=== PATIENT | female | born 1965 | race African-American/Black ===

== ENCOUNTER 2017-09-07 17:29 | Observation (INO) | payer OTHER, SELFPAY ==
[2017-09-07 18:01] LABS: #Basophils 0.1 thou/uL (0.0-0.2); #Lymphocytes 1.3 thou/uL (1.20-3.40); #Monocytes 0.5 thou/uL (0.11-0.59); #Neutrophils 9.5 thou/uL (1.40-6.50); %Basophils 0.5 % (0.0-1.0); %Eosinophils 0.2 % (0.0-10.0); %Lymphocytes 11.1 % (21.0-51.0); %Monocytes 4.2 % (0.0-10.0); Mean Corpuscular HGB CONC 33.7 g/dL (32.0-36.0); Mean Corpuscular Hemoglobin 31.5 pg (27.0-31.0); Mean Corpuscular Volume 93.2 fl (81.0-99.0); Mean Platelet Volume 8.7 fL (7.4-10.4); Platelet Count 280 thou/uL (130-400); RBC Distribution Width 11.3 % (11.5-14.5); Red Blood Cell (RBC) Count 3.82 mill/uL (4.20-5.40); White Blood Cell (WBC) Count 11.4 thou/uL (4.8-10.8)
[2017-09-07 18:23] LABS: ALT (SGPT) 19 U/L (8-55); AST (SGOT) 21 U/L (5-34); Albumin 4.1 g/dL (3.5-5.0); Alkaline Phosphatase 68 U/L (40-150); Anion Gap 12 mmol/L (10-20); BUN (Urea Nitrogen) 11 mg/dL (9.8-20.1); Bilirubin, Total 0.6 mg/dL (0.2-1.2); CK (CPK) 122 U/L (29-168); Calc. Creatinine Clearance 0 mL/min (70-130); Calcium 9.7 mg/dL (7.8-10.44); Carbon Dioxide 24 mmol/L (22-29); Chloride 103 mmol/L (98-107); Estimated GFR-MDRD Greater than 90; Globulin 3.3 g/dL (2.4-3.5); Glucose 160 mg/dL (70-105); Potassium 3.2 mmol/L (3.5-5.1); Protein, Total 7.4 g/dL (6.0-8.3); Sodium 136 mmol/L (136-145)
[2017-09-07 18:32] LABS: CKMB 0.9 ng/mL (0-6.6); Troponin I Less than 0.010 ng/mL (< 0.028)
--- NOTE | 2017-09-07 18:38 | CT ---
BRAIN CT WITHOUT IV CONTRAST: 09/07/17 HISTORY: 52-year-old female with headache following a fall. COMPARISON: 11/19/16. FINDINGS: No focal mass or midline shift. No intra or extra-axial hemorrhage. Sinuses and mastoids are clear. IMPRESSION: No acute intracranial process. No mass or bleed. Stable from prior study. POS: [facility]
[2017-09-07] MEDS ORDERED: traMADol HCl 50 MG TAB PO PRN (20:26)
[2017-09-07 23:10] LABS: Bilirubin Negative (Negative); Blood, Urine Negative (Negative); Clarity CLEAR (Clear); Glucose, Urine (Dipstick) Negative (Negative); Leukocyte Negative (Negative); Nitrite Negative (Negative); Protein, Urine (Dipstick) Trace mg/dL (Neg-Trace); Specific Gravity, Urine 1.014 (1.002-1.036)
[2017-09-07] MEDS: Potassium Chloride 40 MEQ in Sodium Chloride 0.9% 500 ML IVPB SCH (23:10)
[2017-09-07 23:19] LABS: Amphetamine Not Detected (NotDetected); Barbiturates Screen Not Detected (NotDetected); Benzodiazepine Screen Not Detected (NotDetected); Cocaine Metabolite Screen Not Detected (NotDetected); Medtox Control Line Valid? VALID (VALID); Medtox Reader # READER 1; Methadone Not Detected (NotDetected); Methamphetamine Not Detected (NotDetected); Opiate Screen Detected (NotDetected); Oxycodone Screen Not Detected (NotDetected); Phencyclidine (PCP) Not Detected (NotDetected); THC/Cannabinoid Screen Not Detected (NotDetected); Tricyclic Screen Not Detected (NotDetected)
[2017-09-07] MEDS ORDERED: Sodium Chloride 0.9% 1,000 ML IV SCH (23:45)
--- NOTE | 2017-09-07 23:54 | HP ---
CHIEF COMPLAINT: Headache and intractable nausea and vomiting. HISTORY OF PRESENT ILLNESS: This is a 52-year-old pleasant lady who was apparently in usual state of health says that she was under lot of stress in the last couple of days, had a headache when she got up and it was severe, so she took some sinus medications because she thought it was sinus problem an d after that she had intractable nausea and vomiting. The headache still persists as she called and she had some spasms of both the legs. She was concerned and then she called 911, 911 gave her 10 mg of morphine and 4 mg of Zofran, which helped her a little bit with headache. At the time of my exami cezar, she says that the headache was still coming back right now. Denies any fever, chills, diarrh ea, or dysuria, still feels nauseous. Patient's medical history is significant for hypertension, his tory of uterine fibroids. Of note, patient was admitted in 11/2016 with similar problems related to headache let to unresponsiveness and she was intubated briefly and later got better and was discharge d. PAST SURGICAL HISTORY: Significant for appendectomy, hysterectomy, left hand surgery. PSYCHIATRIC HISTORY: Significant for anxiety and depression. SOCIAL HISTORY: Does not smoke, drink, or do recreational drugs. FAMILY HISTORY: Negative for diabetes, hypertension. ALLERGIES: PROMETHAZINE. REVIEW OF SYSTEMS: Significant for nausea, vomiting, and headache, otherwise no fever, no chills, no eye pain, no hearing loss, no latencies. No cough, no chest pain, no diarrhea, dysuria, or polyuria . No memory or mood changes. No neck pain. PHYSICAL EXAMINATION: VITAL SIGNS: Blood pressure is 141/100, pulse is 67, respirations 18, temperature 97.7. GENERAL: Patient is lying in bed in mild distress, because of the headache. HEENT: Atraumatic, normocephalic. Pupils are equally round and react to light. Extraocular movemen ts intact. Mucous membranes moist. NECK: Supple. No JVD. CHEST: Breath sounds heard. No rales or rhonchi. HEART: S1, S2. No murmurs or gallops. ABDOMEN: Soft. EXTREMITIES: No cyanosis, clubbing, or edema. Distal pulses present. NEUROLOGIC: Alert, awake, oriented. No cranial deficits. No sensorimotor deficits. LABORATORY DATA: Patient's potassium is 3.2, creatinine is 0.6. EKG is normal sinus rhythm. Hemogl obin is 12, WBC count is 1.4 ejection fraction of 60%. CT head is negative. Troponin is negative. ASSESSMENT AND PLAN: 1. Headache, most probably stress-induced headache. We will give her Tylenol. Continue tramadol fo r home medication. In[place]ern as needed and given some trazodone to get some good sleep if the patient's headache persists, we will think of Neurology consult. 2. Intractable nausea, vomiting. We will give her p.r.n. medications and slowly start diet. 3. Muscle cramps secondary to hypokalemia. We will replace potassium. We will monitor blood pressu re and optimize blood pressure supplement, potassium as needed. 4. Sequential compression devices for deep venous thrombosis prophylaxis. I will follow the labs an d do the need for.
[2017-09-07] MEDS ORDERED: Acetaminophen 325 MG TAB PO PRN (23:58)
[2017-09-07] MEDS ORDERED: traZODone HCl 50 MG TAB PO PRN (23:58)
[2017-09-07] MEDS ORDERED: Calcium Carbonate 500 MG ChewTAB PO PRN (23:58)
[2017-09-07] MEDS ORDERED: Lorazepam 1 MG TAB PO PRN (23:58)
[2017-09-07] MEDS ORDERED: hydrALAZINE 20 MG/ML VIAL SLOW IVP PRN (23:58)
[2017-09-07] MEDS ORDERED: HYDROcodone/Acetaminophen 5/325 mg Tablet PO PRN (23:58)
[2017-09-07] MEDS ORDERED: Ondansetron HCl/PF 4 MG/2 ML Vial IVP PRN (23:58)
[2017-09-08 00:15] VITALS: BMI 25.9
[2017-09-08] MEDS ORDERED: Famotidine/PF 20 mg/2ml Vial SLOW IVP SCH (00:15)
[2017-09-08 00:21] LABS: Bacteria/HPF None Seen HPF (None Seen); Hyaline Casts/LPF 0-3 HYALINE CAST LPF (0-3 Hyaline); RBC/HPF 0-3 HPF (0-3); Squamous Epithelial 0-3 HPF (0-3); WBC/HPF 0-3 HPF (0-3)
[2017-09-08] MEDS: Potassium Chloride 40 MEQ in Sodium Chloride 0.9% 500 ML IVPB SCH (01:00)
[2017-09-08] MEDS: Metoprolol Tartrate 25 MG TAB PO SCH ×4 (01:03→20:02)
[2017-09-08] MEDS: Sodium Chloride 0.9% 1,000 ML IV SCH ×2 (01:44→17:39)
[2017-09-08] MEDS: Famotidine/PF 20 mg/2ml Vial SLOW IVP SCH ×3 (01:48→19:57)
[2017-09-08 06:05] LABS: #Lymphocytes 1.5 thou/uL (1.20-3.40); #Monocytes 0.9 thou/uL (0.11-0.59); #Neutrophils 7.8 thou/uL (1.40-6.50); %Basophils 0.3 % (0.0-1.0); %Eosinophils 0.3 % (0.0-10.0); %Lymphocytes 14.3 % (21.0-51.0); %Monocytes 8.8 % (0.0-10.0); %Neutrophils 76.3 % (42.0-75.0); Mean Corpuscular HGB CONC 33.2 g/dL (32.0-36.0); Mean Corpuscular Hemoglobin 31.1 pg (27.0-31.0); Mean Corpuscular Volume 93.7 fl (81.0-99.0); Platelet Count 256 thou/uL (130-400); RBC Distribution Width 11.4 % (11.5-14.5); Red Blood Cell (RBC) Count 3.86 mill/uL (4.20-5.40); White Blood Cell (WBC) Count 10.2 thou/uL (4.8-10.8)
[2017-09-08 06:28] LABS: Anion Gap 11 mmol/L (10-20); BUN (Urea Nitrogen) 10 mg/dL (9.8-20.1); Calc. Creatinine Clearance 92 mL/min (70-130); Calcium 9.7 mg/dL (7.8-10.44); Carbon Dioxide 27 mmol/L (22-29); Chloride 104 mmol/L (98-107); Estimated GFR-MDRD Greater than 90; Glucose 84 mg/dL (70-105); Potassium 3.7 mmol/L (3.5-5.1); Sodium 138 mmol/L (136-145)
[2017-09-08] MEDS: Lisinopril/Hydrochlorothiazide 20/25 mg Tablet PO SCH (08:14)
[2017-09-08] MEDS ORDERED: Magnesium Oxide 250 MG TAB PO SCH ×2 (10:30→12:45)
[2017-09-08] MEDS ORDERED: Ketorolac Tromethamine 30 MG/ML VIAL IVP SCH (10:30)
--- NOTE | 2017-09-08 13:01 | CON ---
DATE OF CONSULTATION: 09/08/2017 CONSULTING PHYSICIAN: Hospitalist Service IMPRESSION: 1. Migraine. 2. Muscle cramps. PLAN: 1. Toradol 30 mg IV now. 2. Magnesium 500 mg p.o. now. 3. Patient can be discharged home. HISTORY OF PRESENT ILLNESS: Ms. Smith is a 52-year-old black female with a long history of migraines . They do not occur all that often, but can be quite severe. She reports developing a severe headac he associated with nausea and vomiting. She has been having some cramps in her calf muscles also, remy perez came to the ER for help with her headache, the pain is down to 3/10 at this point. Her workup has been unremarkable. I was called to give her a neurologic opinion. PAST MEDICAL HISTORY: Migraines. ALLERGIES: DIPHENHYDRAMINE and PHENERGAN. SOCIAL HISTORY: Unremarkable. FAMILY HISTORY: Noncontributory. REVIEW OF SYSTEMS: No lateralized weakness or numbness. PHYSICAL EXAMINATION: GENERAL: She is a healthy appearing middle-aged woman in no distress. HEENT: Pupils equal and reactive. Conjunctivae clear. Oropharynx clear. NECK: Supple. EXTREMITIES: No cyanosis, clubbing or edema. Calf muscle cramping was elicited with muscle strength testing. NEUROLOGIC: She is alert and appropriate. Her speech is fluent and clear. Cranial nerves were inta ct. Motor exam showed symmetric strength. Sensation was intact to light touch. [id number] move ments and rapid alternating movements were equal. Studies were reviewed. SUMMARY: Middle-aged woman with history of migraines who presented with a severe headache and has be en having some off and on muscle cramping and I do not see any acute neurologic issues otherwise.
--- NOTE | 2017-09-08 13:21 | PDOC.PN ---
- Subjective Encounter Start Date: 09/08/17 Encounter Start Time: 08:40 Pt seen for consult re: headache. Reports headache 12/24, no chest pain or shortness of breath. - Objective MAR Reviewed: Yes Vital Signs & Weight: Vital Signs (12 hours) Temp Pulse Resp BP Pulse Ox 09/08/17 11:55 98.1 F 64 16 145/94 H 99 09/08/17 10:14 98.4 F 62 17 09/08/17 09:49 98.4 F 62 17 148/91 H 99 09/08/17 08:14 68 09/08/17 08:00 97.7 F 68 16 169/89 H 98 09/08/17 04:00 97.5 F L 60 18 139/81 95 Weight Weight 141 lb 8 oz I&O: 09/07/17 09/08/17 09/09/17 06:59 06:59 06:59 Intake Total 560 Balance 560 Result Diagrams: 09/08/17 05:17 09/08/17 05:17 Phys Exam - Physical Examination Constitutional: NAD HEENT: moist MMs Neck: supple Respiratory: clear to auscultation bilateral Cardiovascular: RRR Gastrointestinal: soft Neurological: non-focal, normal sensation, moves all 4 limbs Psychiatric: normal affect Dx/Plan (1) Headache Code(s): R51 - HEADACHE Status: Acute (2) HTN (hypertension) Code(s): I10 - ESSENTIAL (PRIMARY) HYPERTENSION Status: Chronic - Plan out of bed/ambulate * . Likely migraine, continue pain medications. Await neurology input. Monitor vital signs, titrate antihypertensives as needed. Review of Systems - Review of Systems Respiratory: negative: Cough, Dry, Shortness of Breath, Hemoptysis, SOB with Excertion, Pleuritic Pain, Sputum, Wheezing Cardiovascular: negative: chest pain, palpitations, orthopnea, paroxysmal nocturnal dyspnea, edema, light headedness - Medications/Allergies Allergies/Adverse Reactions: Allergies Allergy/AdvReac Type Severity Reaction Status Date / Time diphenhydramine Allergy Mild Anxiety Verified 11/19/16 23:20 [From Benadryl] promethazine [From Phenergan] Allergy Verified 11/19/16 16:38 Medications: Current Medications Acetaminophen (Tylenol) 650 mg PO Q4H PRN PRN Reason: Headache/Fever or Pain Hydrocodone Bitart/Acetaminophen (Paxton 5/325) 1 tab PO Q4H PRN PRN Reason: Moderate Pain (4-6) Calcium Carbonate (Tums) 1,000 mg PO Q4H PRN PRN Reason: Heartburn or Indigestion Famotidine (Pepcid) 20 mg SLOW IVP Q12HR [facility] Last Admin: 09/08/17 08:15 Dose: 20 mg Lisinopril/HCTZ (Prinizide 20-25) 1 tab PO DAILY [facility] Last Admin: 09/08/17 08:14 Dose: 1 tab Hydralazine HCl (Apresoline) 10 mg SLOW IVP Q4H PRN PRN Reason: Systolic BP > 180 Sodium Chloride (Normal Saline 0.9%) 1,000 mls @ 60 mls/hr IV .[id number] [facility] Stop: 09/08/17 21:59 Last Admin: 09/08/17 01:44 Dose: 1,000 mls Lorazepam (Ativan) 1 mg PO Q4H PRN PRN Reason: Anxiety/Agitation Magnesium Oxide (Magnesium Oxide) 500 mg PO NOW [facility] Stop: 09/08/17 14:45 Metoprolol Tartrate (Lopressor) 25 mg PO BID [facility] Last Admin: 09/08/17 08:14 Dose: 25 mg Ondansetron HCl (Zofran) 4 mg IVP Q6H PRN PRN Reason: Nausea/Vomiting Last Admin: 09/08/17 08:18 Dose: 4 mg Tramadol HCl (Ultram) 50 mg PO Q4H PRN PRN Reason: Pain Last Admin: 09/08/17 10:07 Dose: 50 mg Trazodone HCl (Desyrel) 50 mg PO HSPRN PRN PRN Reason: Insomnia
[2017-09-09] MEDS: Metoprolol Tartrate 25 MG TAB PO SCH ×2 (07:59→16:54)
[2017-09-09] MEDS: Famotidine/PF 20 mg/2ml Vial SLOW IVP SCH (07:59)
[2017-09-09] MEDS: Lisinopril/Hydrochlorothiazide 20/25 mg Tablet PO SCH (09:30)
[2017-09-09] MEDS ORDERED: Mag-Al 1200 mg/1200 mg/30 ML UDCUP PO PRN (10:27)
[2017-09-09] MEDS ORDERED: Ketorolac Tromethamine 30 MG/ML VIAL IVP PRN (10:27)
[2017-09-09] MEDS ORDERED: Fioricet 325/50/40 mg Tablet PO PRN (10:28)
[2017-09-09] MEDS ORDERED: Pantoprazole 40 MG VIAL IVP SCH ×2 (11:00→21:00)
--- NOTE | 2017-09-09 13:03 | DIS ---
DATE OF DISCHARGE: 09/09/2017 DISCHARGE DISPOSITION: Home. FOLLOWUP: 1. Follow up with primary care physician at [facility] in [place] in 1 week. 2. GI consultation as outpatient would be beneficial. INPATIENT CONSULTANTS: Neurology, Dr. Montemayor. The patient was seen and examined on the day of discharge. Denies any new complaints. No chest pain , shortness of breath or palpitations. ALLERGIES: The patient is allergic to BENADRYL and PHENERGAN. DISCHARGE MEDICATIONS: 1. Fioricet as needed for migraine. 2. Tylenol as needed. 3. Carvedilol 12.5 mg b.i.d. 4. Clonidine 0.1 mg twice a day. Patient takes this as needed. 5. Lisinopril/HCTZ 20/25 daily. 6. Omeprazole 20 mg daily. 7. Tramadol as needed. BRIEF HOSPITAL COURSE: Patient is a 52-year-old female with hypertension, anxiety, depression, who p resented to the hospital with headache with intractable nausea and vomiting. She claims to have a lo t of stress lately. Please refer to the history and physical dated 09/07/2017, by Dr. Jones for fur ther details. The patient was admitted to the hospital with a diagnosis of intractable headache with nausea, vomiti ng, suspicious for migraine. Patient was evaluated by Neurology, Dr. Montemayor. The headache improved after nonsteroidal anti-inflammatory drugs. She was also found to have elevated blood pressure. Ray guzman blood pressure on admission was 167/102. Her blood pressure on the day of discharge is 135/88. She will continue lisinopril/hydrochlorothiazide. Carvedilol has been added. A prescription for F ioricet was also provided just in case of headache is worse. She was advised to take omeprazole ever y day for possible gastritis/peptic ulcer disease. If symptoms persist, she may benefit from an outp atient GI evaluation. She was also advised to consider a gallbladder ultrasound if her symptoms pers ist. Lifestyle modification was emphasized. Plan of care was discussed with the patient in detail. She stated understanding. FINAL DIAGNOSES: 1. Hypertensive urgency. 2. Intractable headache with nausea, vomiting, suspicious for migraine. 3. Dyspepsia. 4. Gastroesophageal reflux disease. 5. Anxiety, depression without any suicidal ideation. 6. Hypokalemia, corrected. SIGNIFICANT LABORATORIES: Potassium was 3.2, at discharge is 3.7. IMAGING: CT scan of the brain was negative for acute findings. Plan of care was discussed with the patient in detail. She stated understanding.
[2017-09-09 16:37] VITALS: BP 158/108; TEMP 98.6
== END 2017-09-09 17:02 | disposition home or self-care (01) ==
LOC: ERS 17:29 → 2NO 23:05 → T4-A 09-08 09:21
PROVIDERS: ADMIT Internal Medicine; ATTEND Internal Medicine
DX: I16.0 Hypertensive urgency (principal); R11.2 Nausea with vomiting, unspecified; R10.13 Epigastric pain; K21.9 Gastro-esophageal reflux disease without esophagitis; F32.9 Major depressive disorder, single episode, unspecified; F41.9 Anxiety disorder, unspecified; E87.6 Hypokalemia; I10 Essential (primary) hypertension; R25.2 Cramp and spasm; G43.919 Migraine, unspecified, intractable, without status migrainosus; Z79.899 Other long term (current) drug therapy; Z88.8 Allergy status to other drugs, medicaments and biological substances; Z90.49 Acquired absence of other specified parts of digestive tract; Z90.710 Acquired absence of both cervix and uterus; Z98.890 Other specified postprocedural states
CPT/HCPCS: 36415; 70450; 80048; 80053; 80306; 81001; 81003; 82553; 83735; 84484; 85025; 93005; 96361; 96365; 96366; 96375; 96376; C9113; G0378; J1885; J2405; J3480; J7050; S0028

== ENCOUNTER 2017-12-12 09:42 | Outpatient (CLI) | payer OTHER | END 2017-12-12 09:43 | disposition home or self-care (01) | LOC: BICMRI 09:42 | PROVIDERS: ATTEND Family Medicine | DX: S49.91XD Unspecified injury of right shoulder and upper arm, subsequent encounter (principal); M75.101 Unspecified rotator cuff tear or rupture of right shoulder, not specified as traumatic ==

== ENCOUNTER 2018-01-21 10:47 | Outpatient (CLI) | payer OTHER ==
[2018-01-21 11:36] LABS: Hemoglobin 12.7 g/dL (12.0-16.0); Mean Corpuscular HGB CONC 33.3 g/dL (32.0-36.0); Mean Corpuscular Hemoglobin 30.6 pg (27.0-31.0); Mean Corpuscular Volume 91.9 fl (81.0-99.0); Mean Platelet Volume 9.2 fL (7.4-10.4); Platelet Count 228 thou/uL (130-400); RBC Distribution Width 11.5 % (11.5-14.5); Red Blood Cell (RBC) Count 4.15 mill/uL (4.20-5.40); White Blood Cell (WBC) Count 6.7 thou/uL (4.8-10.8)
[2018-01-21 12:05] LABS: Anion Gap 13 mmol/L (10-20); BUN (Urea Nitrogen) 12 mg/dL (9.8-20.1); Calc. Creatinine Clearance 0 mL/min (70-130); Carbon Dioxide 29 mmol/L (22-29); Chloride 103 mmol/L (98-107); Estimated GFR-MDRD 88; Glucose 78 mg/dL (70-105); Potassium 3.7 mmol/L (3.5-5.1); Sodium 141 mmol/L (136-145)
--- NOTE | 2018-01-21 14:38 | EKG ---
Test Reason : Blood Pressure : / mmHG Vent. Rate : 064 BPM Atrial Rate : 064 BPM P-R Int : 192 ms QRS Dur : 074 ms QT Int : 388 ms P-R-T Axes : 049 -15 048 degrees QTc Int : 400 ms Normal sinus rhythm Possible Left atrial enlargement Borderline ECG When compared with ECG of 07-SEP-2017 17:46, Nonspecific T wave abnormality no longer evident in Inferior leads Nonspecific T wave abnormality, improved in Lateral leads Confirmed by DR. Talha CLAROS ([id number]) on 01/21/2018 2:38:03 PM Referred By: NAILA Confirmed By:DR. Talha CLAROS
== END 2018-01-21 10:48 | disposition home or self-care (01) ==
LOC: LABBT 10:47
PROVIDERS: ATTEND Orthopaedic Surgery
DX: Z01.818 Encounter for other preprocedural examination (principal); M75.101 Unspecified rotator cuff tear or rupture of right shoulder, not specified as traumatic
CPT/HCPCS: 80048; 85027; 93005; 93010

== ENCOUNTER 2018-01-23 05:41 | Day surgery (SDC) | payer OTHER ==
[2018-01-21 10:55] VITALS: BMI 25.6
[2018-01-23] MEDS ORDERED: Clindamycin/D5W 600 mg/50 ml Premix Bag ONE (06:31)
[2018-01-23] MEDS ORDERED: Midazolam HCl 2 mg/2 ml Vial ONE ×2 (06:32→10:27)
[2018-01-23] MEDS ORDERED: Fentanyl 100 MCG/2 ML VIAL ONE (06:32)
[2018-01-23] MEDS ORDERED: Ropivacaine 0.5% HCl/PF (150 MG/30 ML VIAL) ONE (06:58)
[2018-01-23] MEDS ORDERED: Ropivacaine 0.2% HCl/PF (40 MG/20 ML VIAL) ONE (06:58)
[2018-01-23] MEDS ORDERED: Bupivacaine/Epinephrine 0.25% 30 ML VIAL ONE (07:03)
[2018-01-23] MEDS ORDERED: Glycopyrrolate 0.2 MG/ML 5 ML SYRINGE ONE (07:11)
[2018-01-23] MEDS ORDERED: PHENYLEPHRINE-NS 100 MCG/ML 10 ML SYRINGE ONE (07:11)
[2018-01-23] MEDS ORDERED: Lidocaine 1% PF 5 ML VIAL ONE (07:11)
[2018-01-23] MEDS ORDERED: PROPOFOL 200 MG/20 ML VIAL ONE (07:11)
[2018-01-23] MEDS ORDERED: Dexamethasone 20 MG/5 ML VIAL ONE (07:11)
[2018-01-23] MEDS ORDERED: Ropivacaine HCl/PF 1,000 MG in Sodium Chloride 0.9% 400 ML NERVE BLCK SCH (07:26)
[2018-01-23] MEDS ORDERED: traMADol HCl 50 MG TAB PO PRN ×2 (07:26)
[2018-01-23] MEDS ORDERED: HYDROcodone/Acetaminophen 10/325 mg Tablet PO PRN ×2 (07:26)
[2018-01-23] MEDS ORDERED: Zolpidem Tartrate 5 MG TAB PO PRN (07:26)
[2018-01-23] MEDS ORDERED: Ketorolac Tromethamine 30 MG/ML VIAL IVP PRN (07:26)
[2018-01-23] MEDS ORDERED: Ondansetron HCl/PF 4 MG/2 ML Vial IVP PRN (07:26)
[2018-01-23] MEDS ORDERED: Fentanyl 100 MCG/2 ML VIAL IV PRN (07:27)
[2018-01-23] MEDS ORDERED: Promethazine HCl 25 MG/ML VIAL ONE (10:16)
--- NOTE | 2018-01-23 12:37 | RAD ---
AP CHEST: INDICATIONS: History of nerve block. FINDINGS: There is stable cardiomegaly. The lungs are clear. No pneumothorax is evident. There is some subcu taneous gas overlying the right neck base, which may be related to an injection site. IMPRESSION: 1. No pneumothorax. 2. Subcutaneous emphysema overlying the right neck base, which may be related to an injection site. 3. Stable cardiomegaly. POS: [facility]
--- NOTE | 2018-01-23 16:24 | OP ---
DATE OF PROCEDURE: 01/23/2018 PREOPERATIVE DIAGNOSES: Right full thickness rotator cuff tear. POSTOPERATIVE DIAGNOSIS: Right full thickness rotator cuff tear. PROCEDURE PERFORMED: Right rotator cuff repair. STAFF: George Salcedo M.D. WATERWORKS OPERATOR: None. ANESTHESIA: Dr. Dunn. The patient received a general endotracheal intubation with an interscalene block. ESTIMATED BLOOD LOSS: 20 mL. TOURNIQUET TIME: None. IMPLANTS: A 5.5 Arthrex corkscrew and a 4.75 SwiveLock. COMPLICATIONS: None. ANTIBIOTICS: Clindamycin 600 mg. HISTORY OF PRESENT ILLNESS: Ms. 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 MRI evidence of a full thickness leading edge to the supraspinatus without retraction or degenerative changes. No biceps changes noted. I discussed with patient the risks and benefits of right arthroscopic rotator cuff repair to include pain, scar, bleeding, infection, damage to vital structures, decreased range of motion or strength, failure of procedure, failure of repair, damage or loss of life or limb. The patient understood the risks and benefits and elected to proceed. PROCEDURE IN DETAIL: Time out was performed designating the patient's right upper extremity as the operative site based on sight, consents, and markings. After completion of timeout, the patient's right upper extremity was prepped and draped in sterile fashion. The patient was placed in a beach chair position with all bony prominences well padded. The patient had a posterior working portal and anterior working portal placed. I looked intra-articular at the shoulder at the biceps labrum, which showed no obvious full thickness defects. There was a tear that was noted intra-articularly. There were no humeral defects or glenoid defects. We debrided off the tear intra-articularly and looked the subscapularis and all the structures which looked within normal limits. We moved subacromially, debrided off the bursa and exposed the patient' s rotator cuff created a spot in the footprint and placed 5.5 corkscrew screwed it into position ensured my sutures where I do not feel there was a large enough footprint to put two anchors into this with the proximity to the biceps. Therefore, I elected for a single anchor, I placed 2 sutures anteriorly and 2 posteriorly in horizontal mattress fashion which I sewed and placed a second lateral row to help pull down a little bit of dog eared, but overall had good apposition to the bone of the rotator cuff and was stable. I attempted to try to close the dog ears, but did not want to affect the closure of the cuff. Therefore, I washed, closed, cut stitches from my 4.75 SwiveLock and closed with 3-0 nylon. The patient will be placed in an abduction pillow. Follow up with me in 2 weeks. Elbow, wrist, and hand motion until that time. RENA
== END 2018-01-23 14:15 | disposition home or self-care (01) ==
LOC: SDC 05:41
PROVIDERS: ATTEND Orthopaedic Surgery
PROC: 0LQ14ZZ Repair Right Shoulder Tendon, Percutaneous Endoscopic Approach (ICD-10-PCS; principal; 2018-01-23)
DX: M75.121 Complete rotator cuff tear or rupture of right shoulder, not specified as traumatic (principal); I10 Essential (primary) hypertension; G43.909 Migraine, unspecified, not intractable, without status migrainosus
CPT/HCPCS: 71045; 96374; C1713; J1100; J2001; J2250; J2550; J2704; J2795; J3010; J3490; J7050

== ENCOUNTER 2018-09-10 23:09 | Emergency (ER) | payer SELFPAY ==
[2018-09-10] MEDS ORDERED: cloNIDine 0.1 MG TAB ONE (23:40)
--- NOTE | 2018-09-11 08:23 | ULT ---
PRELIMINARY REPORT/[facility]/EMERGENTY AFTER-HOURS PROCEDURE US Right Duplex Lower Extremity Veins, Limited EXAM DATE/TIME: 09/11/2018 12:30 AM CLINICAL HISTORY: 53 years old, female; Pain; Leg, upper; Right TECHNIQUE: Real-time Duplex ultrasound of the Right Lower Extremity with 2-D casas scale, color Doppler flow and spectral waveform analysis. Limited exam was focused on the right lower extremity veins. COMPARISON: No relevant prior studies available. FINDINGS: Right deep veins: The common femoral, femoral, popliteal and visualized calf veins are patent without thrombus. Normal compressibility, augmentation response and Doppler waveforms. Right superficial veins: Saphenofemoral junction is patent without thrombus. Soft tissues: No popliteal cyst. IMPRESSION: No evidence of deep vein thrombosis. Thank you for allowing us to participate in the care of your patient. Dictated and Authenticated by: Todd Hansen MD 09/11/2018 1:56 AM Central Time ([place] & [place]) FINAL REPORT ULTRASOUND RIGHT LOWER EXTREMITY VENOUS DOPPLER: HISTORY: Emergency exam. Lower extremity edema. COMPARISON: None. TECHNIQUE: Real-time, casas scale, color Doppler, and spectral Doppler, and spectral analysis of the right lower extremity venous systems performed. FINDINGS: The common femoral, femoral, proximal portion, greater saphenous, and deep femoral veins as well as t he popliteal and posterior tibial vein were interrogated. Normal flow, augmentation, and compression. IMPRESSION: No deep venous thrombosis. CODE: MABLE POS: [facility]
== END 2018-09-11 02:21 | disposition home or self-care (01) ==
LOC: ERS 23:09
DX: M79.604 Pain in right leg (principal); I10 Essential (primary) hypertension; F41.9 Anxiety disorder, unspecified; F32.9 Major depressive disorder, single episode, unspecified; Z79.899 Other long term (current) drug therapy

== ENCOUNTER 2019-11-19 16:03 | Inpatient (IN) | payer SELFPAY ==
[~2019-11-19 16:03] MED LIST: Iopamidol-370 76% 500 ML 1 ML ONE
--- NOTE | 2019-11-19 16:16 | CT ---
Head CT without contrast 11/19/2019: COMPARISON: 11/19/2019 HISTORY: Left-sided weakness with left-sided deficits and dysphasia TECHNIQUE: Axial CT imaging at 5 mm intervals from vertex through skull base without contrast FINDINGS: The imaged paranasal sinuses and mastoid air cells are well-aerated. No displaced calvarial fracture. No intracranial hemorrhage, midline shift, mass effect, or ventricular enlargement. IMPRESSION: No acute findings. Results called to Dr. Diamond at 4:12 PM 11/19/2019
--- NOTE | 2019-11-19 16:43 | CT ---
CT arteriogram neck with IV contrast and 3-D imaging CT arteriogram head with IV contrast and 3-D imaging CT brain with IV contrast HISTORY: Left-sided weakness. Stroke alert. FINDINGS: There is good contrast opacification of the aortic arch with normal branching of the great vessels. Good flow into each carotid and vertebral system. Each carotid bifurcation is widely patent. [place] is intact. Good flow into each cerebral and cerebellar system. No abnormally enhancing brain lesions are apparent. Images including the thyroid gland show tiny nonspecific cystic nodules.. Mild degenerative changes o f the cervical spine. IMPRESSION: No acute vascular abnormalities are demonstrated. Findings were called to Dr. Diamond in the emergency department at 1632 hours. Code CR.
[2019-11-19] MEDS ORDERED: methylPREDNISolone Sod Succ/PF 125 MG/2 ML VIAL ONE (16:44)
[2019-11-19] MEDS ORDERED: Famotidine/PF 20 mg/2ml Vial ONE (16:44)
[2019-11-19 18:31] VITALS: BMI 28.4
[2019-11-19] MEDS ORDERED: niCARdipine 25 MG in Sodium Chloride 0.9% 250 ML 240 ML IVPB PRN (18:47)
[2019-11-19] MEDS ORDERED: Labetalol HCl 100 MG/20 ML VIAL SLOW IVP PRN (18:47)
[2019-11-19] MEDS ORDERED: hydrALAZINE 20 MG/ML VIAL SLOW IVP PRN (18:47)
[2019-11-19] MEDS ORDERED: cloNIDine 0.1 MG TAB PO PRN (18:51)
[2019-11-19] MEDS: Communication Order-Pharmacy FS SCH (19:21)
[2019-11-19] MEDS: NS 0.9% w/ 20 MEQ KCL 1,000 ML IV SCH (20:11)
[2019-11-19] MEDS ORDERED: Atorvastatin Calcium 40 MG TAB PO SCH (21:00)
[2019-11-19] MEDS: Acetaminophen 325 MG TAB PO PRN (21:55)
--- NOTE | 2019-11-19 23:43 | HP ---
CHIEF COMPLAINT: Stroke-like symptoms. HISTORY OF PRESENT ILLNESS: The patient is a 54-year-old female with hypertension and anxiety, presented to the emergency room at [place] with stroke-like symptoms. She started having sudden onset of difficulty speaking along with left-sided weakness. She was brought into the emergency room. She also had bilateral lower extremity weakness, mainly in the left leg along with numbness on the left half of the face. She also had difficulty speaking. No headache, double vision, blurring of vision, or facial asymmetry reported. No similar symptoms in the past. No chest pain, palpitations reported. Patient received tPA at that facility and was transferred to this facility. CT scan of the brain was negative for acute findings. Her NIH score in the ER was 18. She was airlifted to this facility. In the emergency room, the patient started having lip swelling after the CT scan. She received Pepcid along with Solu-Medrol and 100 mg of intramuscular hydroxyzine along with IV fluids. PAST MEDICAL HISTORY: 1. Hypertension. 2. Anxiety. PAST SURGICAL HISTORY: 1. Appendectomy. 2. Hysterectomy. 3. Left hand surgery. ALLERGIES: BENADRYL AND PHENERGAN. HOME MEDICATIONS: Patient is on clonidine as needed, lisinopril and hydrochlorothiazide. SOCIAL HISTORY: The patient currently drives a school bus. No smoking, alcohol, or drug use reported. FAMILY HISTORY: Negative for diabetes and hypertension. REVIEW OF SYSTEMS: All other review of systems are reviewed and were found negative. PHYSICAL EXAMINATION: VITAL SIGNS: In the emergency room showed temperature 98.7, pulse rate of 79, blood pressure 174/114, respirations of 17, O2 saturation 96% on room air. GENERAL: A 54-year-old female, in no apparent distress. Symptoms slowly improving. HEENT: Head, atraumatic and normocephalic. Sclerae anicteric. Moist mucous membranes. No oral lesion. NECK: Supple. No JVD appreciated. No carotid bruit. LUNGS: Clear to auscultation bilaterally. No wheezing, rales, or rhonchi. HEART: S1 and S2 present. Regular rate and rhythm. No rubs or gallops. ABDOMEN: Soft, nontender. Bowel sounds present. EXTREMITIES: No edema or calf tenderness. NEUROLOGIC: Cranial nerves 2 through 12 were normal on examination. Power was 5/5 in the right upper and right lower extremity. She continues to have left-sided weakness more pronounced in left upper extremity. Sensation to touch was diminished on the left half of the face. Reflexes were equivocal. PSYCHIATRIC: Alert, awake, and oriented x3. Normal affect. SKIN: Warm and dry. LYMPH NODES: No palpable lymph nodes in the neck. PERIPHERAL VASCULAR: Radial pulses palpable bilaterally. MUSCULOSKELETAL: No joint swelling or tenderness. DIAGNOSTIC DATA: Chest x-ray by my review was negative for acute findings. CT scan of the brain without contrast was negative. CT angiogram of the head and neck was negative for hemodynamically significant stenosis. EKG by my review showed sinus rhythm with nonspecific ST-T wave changes. CBC showed WBC 7.9, hemoglobin 13, hematocrit 39.9, platelets 221. PT/INR, PTT in normal range. Chemistry showed sodium 139, potassium 3.6, chloride 104, bicarb 25, BUN of 10, creatinine 0.8. LFTs in normal range. Troponin was negative. IMPRESSION: 1. Acute CVA, status post tPA. 2. Anxiety. 3. Depression, mild, stable. Patient denies any suicidal ideation. 4. Chronic kidney disease stage 2. 5. Hypertension with hypertensive crisis on ER arrival. 6. Degenerative joint disease. 7. Allergic reaction to iodinated contrast. PLAN: The patient will be monitored in the intensive care unit. We will continue post tPA stroke order set. We will repeat imaging in a.m. Consult Neurology. Stroke Team consultation. IV fluids. We will resume antihypertensives gradually. Start her on aspirin and statin. DVT prophylaxis. The patient understands the above plan of care. Job ID: [id number]
[2019-11-20] MEDS: NS 0.9% w/ 20 MEQ KCL 1,000 ML IV SCH ×2 (05:55→20:05)
[2019-11-20] MEDS: Acetaminophen 325 MG TAB PO PRN ×2 (08:03→19:01)
[2019-11-20] MEDS ORDERED: Senokot S 8.6-50 MG TAB PO PRN (08:47)
[2019-11-20] MEDS ORDERED: Calcium Carbonate 500 MG ChewTAB PO PRN (08:47)
[2019-11-20] MEDS ORDERED: Ondansetron PF 4 MG/2 ML Vial IVP PRN (08:47)
[2019-11-20] MEDS ORDERED: Ondansetron ODT 4 MG TAB PO PRN (08:47)
[2019-11-20] MEDS ORDERED: Lorazepam 1 MG TAB PO PRN (08:53)
--- NOTE | 2019-11-20 09:09 | CON ---
DATE OF CONSULTATION: HISTORY OF PRESENT ILLNESS: Janelle Smith is a 54-year-old female from [place], [place], presented with motor deficit, weakness, aphasia, mumbling, apparently left-sided. She has a history of hypertension. She was given some labetalol. She had a CT head and CT angio negative and was given tPA as per the protocol. She was transferred from [place] to [facility]. EKG showed nonspecific changes. Apparently, they tried to contact Interventional Neurology, unavailable. She was transferred by helicopter here. She is now in the ICU awaiting an MRI today. She is awake, alert, and responsive. She tells me she is having muscle spasm. PAST MEDICAL HISTORY: Hypertension, anxiety. PAST SURGICAL HISTORY: Appendix, hysterectomy, and left hand. CHRONIC MEDICATIONS: From home includes; 1. Catapres 0.1. 2. Lisinopril. ALLERGIES: CONTRAST, PHENERGAN, AND BENADRYL. SOCIAL AND FAMILY HISTORY: Unremarkable. No alcohol or tobacco abuse. REVIEW OF SYSTEMS: Negative. PHYSICAL EXAMINATION: GENERAL: She is awake, alert, and responsive. No distress. She moves all four extremities, though she tells me she is undergoing spasm. VITAL SIGNS: Blood pressure 140/90, pulse . CHEST: Decreased breath sounds. No wheezing. CARDIAC: Normal S1 and S2. No gallops. ABDOMEN: No masses. IMAGING DATA: X-ray is clear. IMPRESSION: 1. Unknown neurological issues, status post tPA for stroke-like symptoms. 2. Hypertension, migraine. PLAN: MRI is being ordered. Pulmonary/Critical Care will follow while in the ICU. Nothing additional we will offer. We will control blood pressure, etc. Consultation note, 70 minutes, 50% direct patient care. Job ID: [id number]
--- NOTE | 2019-11-20 11:04 | MRI ---
MRI BRAIN WITHOUT CONTRAST: HISTORY: Left-sided weakness, left-sided deficits and dysphasia COMPARISON: 11/21/2016 CORRELATION: CT scan from 11/19/2019. FINDINGS: No restricted diffusion is seen. There is redemonstration of mild chronic small vessel ischemic disea se. The ventricular size is appropriate and the basilar cisterns are patent. No evidence of acute infarct, hemorrhage, midline shift or abnormal extra-axial fluid collections is seen. The visualized paranasal sinuses and mastoid air cells are well-aerated. IMPRESSION: No evidence of acute intracranial process.
[2019-11-20] MEDS: predniSONE 20 MG TAB PO SCH (11:43)
[2019-11-20] MEDS: Loratadine 10 MG TAB PO SCH (11:43)
[2019-11-20] MEDS: Famotidine 20 MG TAB PO SCH ×2 (11:43→20:52)
--- NOTE | 2019-11-20 14:09 | CON ---
DATE OF CONSULTATION: 11/20/2019 CONSULTING PHYSICIAN: Hospitalist Service. IMPRESSION: 1. 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 2. Hypertension. PLAN: Continue neurologic workup with MRI of the brain, echocardiogram as we await the tPA resolution. HISTORY OF PRESENT ILLNESS: Ms. Smith is a 54-year-old black female, who presented to the emergency room with complaints of left-sided numbness and weakness. She had a negative CT scan of the brain as well as CTA. She was given tPA and transferred here. She reports she is feeling better, but continues to have difficulty with her left side. She is also complaining of spasms in her lower extremities. She reportedly took aspirin for a few days prior to the stroke. She is otherwise stable since her admission to the ICU. PAST MEDICAL HISTORY: Hypertension. ALLERGIES: DIPHENHYDRAMINE, PROMETHAZINE. SOCIAL HISTORY: Positive for tobacco. FAMILY HISTORY: Noncontributory. REVIEW OF SYSTEMS: Ten-system review of systems is otherwise negative. PHYSICAL EXAMINATION: VITAL SIGNS: Blood pressure 156/96, pulse 72 and a sinus rhythm, and respirations 17. HEENT: Pupils are equal. Conjunctivae are clear. Oropharynx clear. NECK: Supple. EXTREMITIES: No cyanosis or edema. NEUROLOGIC: She was alert and cooperative. Her speech is fluent and clear. There were no facial asymmetries. Her movements were robotic and irregular in appearance. Rapid alternating movements were jerky and nonphysiologic. Sensation was subjectively intact. Plantar responses were downgoing. Gait was not tested. SUMMARY: This is a middle-aged woman with complaints of left-sided weakness and numbness. Reportedly, the numbness is better. Her exam is embellished. I suspect that this will likely returner to be psychogenic. Job ID: [id number]
[2019-11-20] MEDS ORDERED: Enoxaparin Sodium 40 MG/0.4 ML SYRINGE SC SCH (16:30)
[2019-11-20] MEDS ORDERED: Aspirin 325 mg Enteric Coated Tablet PO SCH (16:30)
[2019-11-20 16:59] LABS: #Lymphocytes 0.9 thou/uL (1.20-3.40); #Monocytes 0.9 thou/uL (0.11-0.59); #Neutrophils 15.4 thou/uL (1.40-6.50); %Basophils 0.1 % (0.0-1.0); %Eosinophils 0.2 % (0.0-10.0); %Lymphocytes 5.2 % (21.0-51.0); %Monocytes 5.2 % (0.0-10.0); %Neutrophils 89.4 % (42.0-75.0); Hemoglobin 12.4 g/dL (12.0-16.0); Mean Corpuscular HGB CONC 33.6 g/dL (32.0-36.0); Mean Corpuscular Hemoglobin 30.9 pg (27.0-31.0); Mean Corpuscular Volume 91.8 fL (78.0-98.0); Mean Platelet Volume 9.9 fL (7.4-10.4); Platelet Count 226 thou/uL (130-400); RBC Distribution Width 11.6 % (11.5-14.5); Red Blood Cell (RBC) Count 4.01 mill/uL (4.20-5.40); White Blood Cell (WBC) Count 17.2 thou/uL (4.8-10.8)
[2019-11-20] MEDS: Communication Order-Pharmacy FS SCH (17:23)
[2019-11-20 17:24] LABS: ALT (SGPT) 19 U/L (8-55); AST (SGOT) 19 U/L (5-34); Alkaline Phosphatase 76 U/L (40-110); Anion Gap 13 mmol/L (10-20); BUN (Urea Nitrogen) 13 mg/dL (9.8-20.1); Bilirubin, Total 0.4 mg/dL (0.2-1.2); Calc. Creatinine Clearance 88 mL/min (70-130); Calcium 9.1 mg/dL (7.8-10.44); Carbon Dioxide 22 mmol/L (22-29); Chloride 108 mmol/L (98-107); Estimated GFR-MDRD 90; Globulin 3.5 g/dL (2.4-3.5); Glucose 143 mg/dL (70-105); Potassium 3.8 mmol/L (3.5-5.1); Protein, Total 7.5 g/dL (6.0-8.3); Sodium 139 mmol/L (136-145)
[2019-11-20] MEDS ORDERED: Cyclobenzaprine 10 MG TAB PO PRN (18:45)
[2019-11-20] MEDS ORDERED: Atorvastatin Calcium 10 MG TAB PO SCH (21:00)
--- NOTE | 2019-11-20 21:54 | PDOC.HOSPP ---
- Subjective Encounter Date: 11/20/19 Encounter Time: 15:00 Subjective: Patient seen and examined for ?Acute CVA. No new focal deficits. B/L LE muscle spasms. No new complaints. No overnight events - Objective Vital Signs & Weight: Vital Signs (12 hours) Temp Pulse Pulse Pulse BP BP BP 11/20/19 19:10 83 78 154/101 H 152/100 H 11/20/19 17:00 98.8 F 11/20/19 13:00 98.6 F 11/20/19 11:43 82 162/110 H Weight Admit Weight 155 lb Weight 155 lb 10.342 oz Most Recent Monitor Data Heart Rate from ECG 74 NIBP 152/91 NIBP BP-Mean 111 Respiration from ECG 22 SpO2 98 I&O: 11/19/19 11/20/19 11/21/19 06:59 06:59 06:59 Intake Total 1203 1570 Output Total 700 400 Balance 503 1170 Result Diagrams: 11/20/19 16:49 11/20/19 16:49 Radiology Reviewed by me: Yes (MRI brain - No CVA) EKG Reviewed by me: Yes (Tele SR) Hospitalist ROS - Review of Systems Cardiovascular: denies: chest pain, palpitations, orthopnea, paroxysmal noc. dyspnea, edema, light headedness, other Gastrointestinal: denies: nausea, vomiting, abdominal pain, diarrhea, constipation, melena, hematochezia, other - Medication Medications: Active Medications Generic Name Dose Route Start Last Admin Trade Name Freq PRN Reason Stop Dose Admin Acetaminophen 650 mg 11/19/19 18:47 11/20/19 19:01 Tylenol PO 650 mg Q6H PRN Administration Headache/Fever/Mild Pain (1-3) Atorvastatin Calcium 10 mg 11/20/19 21:00 11/20/19 20:52 Lipitor PO 10 mg HS ERIKA Administration Famotidine 20 mg 11/20/19 09:00 11/20/19 20:52 Pepcid PO 20 mg BID ERIKA Administration Labetalol HCl 10 mg 11/19/19 18:47 11/20/19 11:43 Normodyne SLOW IVP 10 mg Q10MIN PRN Administration SBP > 180 or DBP > 105 Loratadine 10 mg 11/20/19 09:00 11/20/19 11:43 Claritin PO 10 mg DAILY ERIKA Administration Prednisone 20 mg 11/20/19 08:00 11/20/19 11:43 Prednisone PO 20 mg QA- ERIKA Administration - Exam General Appearance: NAD Neck: supple, no JVD Heart: RRR, no murmur, no gallops, no rubs Respiratory: CTAB, no wheezes, no rales, no ronchi Gastrointestinal: soft, non-tender, non-distended, normal bowel sounds Extremities: no cyanosis, no clubbing, no edema Neurological: no new deficit Psychiatric: normal affect, A&O x 3 Hosp A/P - Plan DVT proph w/lovenox, DVT proph w/SCDs 1. ?Acute CVA, status post tPA. 2. Anxiety. 3. Depression, mild, stable. Patient denies any suicidal ideation. 4. Chronic kidney disease stage 2. 5. Hypertension with hypertensive crisis on ER arrival. 6. Degenerative joint disease. 7. Allergic reaction to iodinated contrast. PLAN: Transfer to Stroke unit Complete stroke w/u Leucocytosis unlikely to be infectious Cont antihistamine with Prednisone for 3 days then dc Stroke team DC IVF flexeril PRN for muscle spasm
[2019-11-21 05:39] LABS: #Monocytes 1.1 thou/uL (0.11-0.59); #Neutrophils 12.6 thou/uL (1.40-6.50); %Basophils 0.3 % (0.0-1.0); %Eosinophils 0.3 % (0.0-10.0); %Lymphocytes 12.4 % (21.0-51.0); %Monocytes 6.7 % (0.0-10.0); %Neutrophils 80.3 % (42.0-75.0); Mean Corpuscular HGB CONC 33.9 g/dL (32.0-36.0); Mean Corpuscular Hemoglobin 30.8 pg (27.0-31.0); Mean Platelet Volume 9.9 fL (7.4-10.4); Platelet Count 209 thou/uL (130-400); RBC Distribution Width 11.6 % (11.5-14.5); White Blood Cell (WBC) Count 15.7 thou/uL (4.8-10.8)
[2019-11-21 06:30] LABS: Thyroid Stimulating Hormone 0.338 uIU/mL (0.35-4.94)
[2019-11-21] MEDS ORDERED: Aspirin 81 mg Enteric Coated Tablet PO SCH (09:00)
[2019-11-21] MEDS ORDERED: Multivit, Therapeutic 1 TAB PO SCH (09:00)
[2019-11-21] MEDS ORDERED: Enoxaparin Sodium 40 MG/0.4 ML SYRINGE SC SCH (09:00)
[2019-11-21] MEDS: Loratadine 10 MG TAB PO SCH (09:40)
[2019-11-21] MEDS: Famotidine 20 MG TAB PO SCH (09:40)
[2019-11-21] MEDS: predniSONE 20 MG TAB PO SCH (09:40)
[2019-11-21 11:42] VITALS: TEMP 98.6
[2019-11-21 12:06] VITALS: BP 156/92
--- NOTE | 2019-11-22 21:38 | DIS ---
DATE OF ADMISSION: 11/19/2019 DATE OF DISCHARGE: 11/21/2019 PRIMARY CARE PROVIDER: Kellee Pineda. FINAL DIAGNOSES: Weakness, left side, resolved; hypertension; anxiety disorder; folate deficiency. DISCHARGE MEDICINES: 1. Clonidine 0.1 mg p.o. p.r.n. 2. Lisinopril/hydrochlorothiazide 20/25 one daily. 3. Folic acid 1 mg daily. 4. Aspirin 81 mg a day. ALLERGIES: 1. BENADRYL. 2. IODINATED CONTRAST. 3. PHENERGAN. CODE STATUS: Full. DIET: Heart-healthy. PENDING AT TIME OF DISCHARGE: Nothing. HOSPITAL COURSE: The patient was admitted to the [facility] through [facility], who presented with stroke-like symptoms, difficulty speaking, left-sided weakness, was given tPA at an outside facility, transferred here. CT of the brain was negative, NIH score was 18. Followup MRI, normal. CT angiography of the brain normal. Seen in consultation by Dr. Keven Montemayor, who agreed with workup, but suspected psychogenic problems, seen in consultation by Dr. Sebastian when she was in [facility]. Comprehensive metabolic profile showed a blood sugar 143, otherwise unremarkable. Folate level was low at 3.9. White count was elevated at 17.2, 15.7, otherwise unremarkable. Dr. Grace's note on 11/20/2019, she was treated with prednisone and antihistamines for her potential allergic reaction with iodinated contrast, which is likely the reason that her white count is elevated. The patient states she has had these symptoms for 2 years. She gets difficulty talking when she is excited. She has trouble that her right leg turns in and she is unable to walk. She states that this has been going on for 2 years. We had a long discussion over outpatient versus inpatient medicine, rehab was offered. She does not desire inpatient rehab. She desires only to go home. Home Health with Physical Therapy was offered, she declined. There is no evidence for acute CVA in this patient. There is no evidence for vascular risk. She is being discharged for followup with her PCP in 3 days. 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 I think this problem is mainly anxiety related and I would recommend to her PCP that she consider a trial of anxiety, antidepressive medicine in this patient as an outpatient. Job ID: [id number] MTDD
== END 2019-11-21 12:36 | disposition home or self-care (01) | DRG 880 ==
LOC: ERS 16:03 → CCU 17:34 → 2SE 11-20 23:12
PROVIDERS: ADMIT Internal Medicine; ATTEND Internal Medicine
DX: F41.9 Anxiety disorder, unspecified (principal); R47.01 Aphasia; I16.9 Hypertensive crisis, unspecified; D25.9 Leiomyoma of uterus, unspecified; D52.9 Folate deficiency anemia, unspecified; I12.9 Hypertensive chronic kidney disease with stage 1 through stage 4 chronic kidney disease, or unspecified chronic kidney disease; M19.90 Unspecified osteoarthritis, unspecified site; N18.2 Chronic kidney disease, stage 2 (mild); G43.909 Migraine, unspecified, not intractable, without status migrainosus; F32.9 Major depressive disorder, single episode, unspecified; Z88.8 Allergy status to other drugs, medicaments and biological substances; Z91.041 Radiographic dye allergy status; Z90.49 Acquired absence of other specified parts of digestive tract; Z90.710 Acquired absence of both cervix and uterus
CPT/HCPCS: 36415; 70450; 70496; 70498; 70551; 80053; 82607; 82746; 83735; 84443; 85025; 93306; 96360; 96374; 96375; 99292; J1650; J2930; J3480; J7512; Q9967; S0028

== ENCOUNTER 2021-05-31 15:43 | Observation (INO) | payer BC, OTHER, SELFPAY ==
[2021-05-31 16:31] LABS: #Eosinphils 0.1 thou/uL (0.0-0.7); #Lymphocytes 1.9 thou/uL (1.20-3.40); #Monocytes 0.8 thou/uL (0.11-0.59); #Neutrophils 5.2 thou/uL (1.40-6.50); %Basophils 0.6 % (0.0-1.0); %Eosinophils 1.6 % (0.0-10.0); %Lymphocytes 23.9 % (21.0-51.0); %Monocytes 9.8 % (0.0-10.0); Mean Corpuscular HGB CONC 33.9 g/dL (32.0-36.0); Mean Corpuscular Hemoglobin 30.6 pg (27.0-31.0); Mean Corpuscular Volume 90.4 fL (78.0-98.0); Mean Platelet Volume 9.8 fL (7.4-10.4); Platelet Count 225 thou/uL (130-400); RBC Distribution Width 11.5 % (11.5-14.5); Red Blood Cell (RBC) Count 3.91 mill/uL (4.20-5.40); White Blood Cell (WBC) Count 8.1 thou/uL (4.8-10.8)
[2021-05-31 16:36] LABS: Prothrombin Time 12.8 sec (12.0-14.7)
[2021-05-31 16:40] LABS: ALT (SGPT) 23 U/L (8-55); AST (SGOT) 22 U/L (5-34); Albumin 4.1 g/dL (3.5-5.0); Alkaline Phosphatase 88 U/L (40-110); Anion Gap 10 mmol/L (10-20); BUN (Urea Nitrogen) 13 mg/dL (9.8-20.1); Bilirubin, Total 0.5 mg/dL (0.2-1.2); Calc. Creatinine Clearance 0 mL/min (70-130); Calcium 9.8 mg/dL (7.8-10.44); Carbon Dioxide 28 mmol/L (22-29); Chloride 105 mmol/L (98-107); Globulin 3.4 g/dL (2.4-3.5); Glucose 89 mg/dL (70-105); Potassium 3.6 mmol/L (3.5-5.1); Protein, Total 7.5 g/dL (6.0-8.3); Sodium 139 mmol/L (136-145)
[2021-05-31] MEDS ORDERED: Aspirin 325 MG TAB ONE (16:57)
[2021-05-31 17:19] LABS: Acetaminophen Less than 6.0 mcg/mL (10.0-30.0); Alcohol Less than 10 mg/dL (Less than 10); Salicylate Less than 8.0 mg/dL (15.0-30.0)
[2021-05-31 17:19] LABS: Bilirubin Negative (Negative); Blood, Urine Negative (Negative); Clarity Clear (Clear); Glucose, Urine (Dipstick) Normal (Negative); Ketone, Urine Negative (Negative); Leukocyte Negative Leu/uL (Negative); Nitrite Negative (Negative); Protein, Urine (Dipstick) 10 mg/dL (Neg-Trace); Specific Gravity, Urine 1.008 (1.002-1.036); Urobilinogen Normal mg/dL (Less than 2)
[2021-05-31 17:26] LABS: Amphetamine Not Detected (NotDetected); Barbiturates Screen Not Detected (NotDetected); Benzodiazepine Screen Not Detected (NotDetected); Cocaine Metabolite Screen Not Detected (NotDetected); Methadone Not Detected (NotDetected); Methamphetamine Not Detected (NotDetected); Opiate Screen Not Detected (NotDetected); Oxycodone Screen Not Detected (NotDetected); Phencyclidine (PCP) Not Detected (NotDetected); THC/Cannabinoid Screen Not Detected (NotDetected); Tricyclic Screen Not Detected (NotDetected)
[2021-05-31] MEDS ORDERED: hydrALAZINE 20 MG/ML VIAL SLOW IVP PRN (21:44)
[2021-05-31] MEDS ORDERED: Ondansetron PF 4 MG/2 ML Vial IVP PRN (21:44)
[2021-05-31] MEDS ORDERED: Ondansetron ODT 4 MG TAB PO PRN (21:44)
[2021-05-31] MEDS ORDERED: Acetaminophen 650 MG Suppository PR PRN (21:44)
[2021-05-31] MEDS ORDERED: Acetaminophen 325 MG TAB PO PRN (21:44)
[2021-05-31 23:23] LABS: SARS-CoV-2 NAA Rapid Test Not Detected (NotDetected)
[2021-06-01 01:20] VITALS: BMI 25.7
[2021-06-01 05:13] LABS: #Basophils 0.1 thou/uL (0.0-0.2); #Eosinphils 0.1 thou/uL (0.0-0.7); #Lymphocytes 1.6 thou/uL (1.20-3.40); #Monocytes 0.8 thou/uL (0.11-0.59); #Neutrophils 4.1 thou/uL (1.40-6.50); %Eosinophils 1.5 % (0.0-10.0); %Monocytes 12.5 % (0.0-10.0); %Neutrophils 61.1 % (42.0-75.0); Hemoglobin 12.3 g/dL (12.0-16.0); Mean Corpuscular HGB CONC 33.5 g/dL (32.0-36.0); Mean Corpuscular Hemoglobin 30.3 pg (27.0-31.0); Mean Corpuscular Volume 90.5 fL (78.0-98.0); Mean Platelet Volume 9.6 fL (7.4-10.4); Platelet Count 198 thou/uL (130-400); RBC Distribution Width 11.7 % (11.5-14.5); Red Blood Cell (RBC) Count 4.06 mill/uL (4.20-5.40); White Blood Cell (WBC) Count 6.8 thou/uL (4.8-10.8)
[2021-06-01 05:39] LABS: Anion Gap 11 mmol/L (10-20); BUN (Urea Nitrogen) 10 mg/dL (9.8-20.1); Calc. Creatinine Clearance 91 mL/min (70-130); Calcium 9.5 mg/dL (7.8-10.44); Carbon Dioxide 25 mmol/L (22-29); Chloride 106 mmol/L (98-107); Cholesterol 154 mg/dl (< 200 Desired); Glucose 95 mg/dL (70-105); HDL Cholesterol 78 mg/dL (>60 Neg Risk); LDL Cholesterol, Calculated 64 mg/dL; Potassium 3.7 mmol/L (3.5-5.1); Sodium 138 mmol/L (136-145); Triglycerides 61 mg/dL (Less than 150)
[2021-06-01] MEDS ORDERED: Lisinopril/Hydrochlorothiazide 20/25 mg Tablet PO SCH (11:45)
[2021-06-01] MEDS: Aspirin 81 mg Enteric Coated Tablet PO SCH (12:17)
[2021-06-02] MEDS: Aspirin 81 mg Enteric Coated Tablet PO SCH (08:55)
[2021-06-02] MEDS ORDERED: Amlodipine 5 MG TAB PO SCH (09:00)
[2021-06-02] MEDS ORDERED: Lisinopril/Hydrochlorothiazide 20/25 mg Tablet PO SCH (09:00)
[2021-06-02] MEDS ORDERED: Atorvastatin Calcium 40 MG TAB PO SCH (21:00)
[2021-06-03 06:13] VITALS: BP 133/90; TEMP 98.3
[2021-06-03] MEDS ORDERED: Aspirin 81 mg Enteric Coated Tablet PO SCH (09:00)
== END 2021-06-02 20:44 | disposition home or self-care (01) ==
LOC: ERS 15:43 → ERHOLD 17:20 → 3SE 06-01 00:49
PROVIDERS: ADMIT Internal Medicine; ATTEND Internal Medicine
DX: G45.9 Transient cerebral ischemic attack, unspecified (principal); I16.0 Hypertensive urgency; I11.9 Hypertensive heart disease without heart failure; I08.1 Rheumatic disorders of both mitral and tricuspid valves; Z86.73 Personal history of transient ischemic attack (TIA), and cerebral infarction without residual deficits; Z79.899 Other long term (current) drug therapy; Z88.8 Allergy status to other drugs, medicaments and biological substances; Z91.041 Radiographic dye allergy status; Z20.822 Contact with and (suspected) exposure to COVID-19
CPT/HCPCS: 36415; 70450; 70551; 80048; 80053; 80061; 80306; 80307; 81003; 84484; 85025; 85610; 85730; 86850; 86900; 86901; 93005; 93306; 93880; 94760; 95712; 95819; 95957; G0378; U0002

== ENCOUNTER 2021-08-11 19:28 | Emergency (ER) | payer BC ==
[2021-08-11 20:00] LABS: #Eosinphils 0.1 thou/uL (0.0-0.7); #Monocytes 1.4 thou/uL (0.11-0.59); #Neutrophils 10.8 thou/uL (1.40-6.50); %Basophils 0.3 % (0.0-1.0); %Eosinophils 0.4 % (0.0-10.0); %Lymphocytes 7.8 % (21.0-51.0); %Monocytes 10.3 % (0.0-10.0); %Neutrophils 81.2 % (42.0-75.0); Hemoglobin 12.8 g/dL (12.0-16.0); Mean Corpuscular HGB CONC 34.9 g/dL (32.0-36.0); Mean Corpuscular Hemoglobin 32.1 pg (27.0-31.0); Mean Corpuscular Volume 91.9 fL (78.0-98.0); Mean Platelet Volume 8.8 fL (7.4-10.4); Platelet Count 192 thou/uL (130-400); RBC Distribution Width 12.1 % (11.5-14.5); White Blood Cell (WBC) Count 13.3 thou/uL (4.8-10.8)
[2021-08-11 20:27] LABS: ALT (SGPT) 48 U/L (8-55); AST (SGOT) 41 U/L (5-34); Albumin 4.5 g/dL (3.5-5.0); Alkaline Phosphatase 114 U/L (40-110); Anion Gap 13 mmol/L (10-20); BUN (Urea Nitrogen) 16 mg/dL (9.8-20.1); Bilirubin, Total 1.2 mg/dL (0.2-1.2); Calc. Creatinine Clearance 0 mL/min (70-130); Carbon Dioxide 28 mmol/L (22-29); Chloride 98 mmol/L (98-107); Globulin 3.9 g/dL (2.4-3.5); Glucose 102 mg/dL (70-105); Potassium 3.9 mmol/L (3.5-5.1); Protein, Total 8.4 g/dL (6.0-8.3); Sodium 135 mmol/L (136-145)
[2021-08-11] MEDS ORDERED: Acetaminophen 325 MG TAB ONE (20:50)
[2021-08-11] MEDS ORDERED: cefTRIAXone\\ROCEPHIN 2 GM VIAL ONE (20:50)
[2021-08-11 22:11] LABS: SARS-CoV-2 NAA Rapid Test DETECTED (NotDetected)
[2021-08-11] MEDS ORDERED: Azithromycin 500 MG VIAL ONE (22:16)
[2021-08-11 22:30] LABS: Bilirubin Negative (Negative); Blood, Urine Negative (Negative); Clarity Clear (Clear); Glucose, Urine (Dipstick) Normal (Negative); Ketone, Urine Trace mg/dL (Negative); Leukocyte Negative Leu/uL (Negative); Nitrite Negative (Negative); Protein, Urine (Dipstick) Negative (Neg-Trace); Specific Gravity, Urine 1.011 (1.002-1.036); Urobilinogen Normal mg/dL (Less than 2)
[2021-08-11] MEDS ORDERED: Ibuprofen 800 MG TAB ONE (22:42)
== END 2021-08-11 23:53 | disposition home or self-care (01) ==
LOC: ERS 19:28
DX: U07.1 COVID-19 (principal); J12.82 Pneumonia due to coronavirus disease 2019; R00.0 Tachycardia, unspecified; I10 Essential (primary) hypertension; E78.5 Hyperlipidemia, unspecified; Z79.82 Long term (current) use of aspirin; Z79.899 Other long term (current) drug therapy
CPT/HCPCS: 36415; 71045; 80053; 81003; 83605; 85025; 87040; 87086; 93005; 96365; 96366; 96375; J0456; J0696; U0002

== ENCOUNTER 2021-10-09 19:28 | Emergency (ER) | payer BC ==
[2021-10-09 20:32] LABS: INR-International Normal Ratio 0.9; Prothrombin Time 12.3 sec (12.0-14.7)
== END 2021-10-09 21:29 | disposition home or self-care (01) ==
LOC: ERS 19:28
DX: M54.2 Cervicalgia (principal); I10 Essential (primary) hypertension; E78.5 Hyperlipidemia, unspecified
CPT/HCPCS: 36415; 72040; 85610; 85730

== ENCOUNTER 2022-07-03 15:25 | Observation (INO) | payer BC ==
[2022-07-03] MEDS ORDERED: Famotidine/PF 20 mg/2ml Vial ONE (15:34)
[2022-07-03] MEDS ORDERED: methylPREDNISolone Sod Succ 40 MG VIAL ONE (15:34)
[2022-07-03 16:14] LABS: #Basophils 0.1 thou/uL (0.0-0.2); #Eosinphils 0.1 thou/uL (0.0-0.7); #Lymphocytes 2.4 thou/uL (1.20-3.40); #Monocytes 0.9 thou/uL (0.11-0.59); #Neutrophils 5.1 thou/uL (1.40-6.50); %Basophils 0.8 % (0.0-1.0); %Lymphocytes 27.6 % (21.0-51.0); %Monocytes 10.9 % (0.0-10.0); %Neutrophils 59.7 % (42.0-75.0); Hemoglobin 11.6 g/dL (12.0-16.0); Mean Corpuscular Hemoglobin 30.4 pg (27.0-31.0); Mean Corpuscular Volume 92.1 fL (78.0-98.0); Platelet Count 214 thou/uL (130-400); RBC Distribution Width 11.6 % (11.5-14.5); Red Blood Cell (RBC) Count 3.83 mill/uL (4.20-5.40); White Blood Cell (WBC) Count 8.5 thou/uL (4.8-10.8)
[2022-07-03 16:17] LABS: PTT 33.6 sec (22.9-36.1); Prothrombin Time 13.7 sec (12.0-14.7)
[2022-07-03 16:20] LABS: ALT (SGPT) 20 U/L (8-55); AST (SGOT) 24 U/L (5-34); Alkaline Phosphatase 80 U/L (40-110); Anion Gap 12 mmol/L (10-20); BUN (Urea Nitrogen) 14 mg/dL (9.8-20.1); Bilirubin, Total 0.5 mg/dL (0.2-1.2); CK (CPK) 163 U/L (29-168); Calc. Creatinine Clearance 0 mL/min (70-130); Calcium 9.5 mg/dL (7.8-10.44); Carbon Dioxide 26 mmol/L (22-29); Chloride 101 mmol/L (98-107); Estimated GFR 84; Globulin 3.5 g/dL (2.4-3.5); Glucose 75 mg/dL (70-105); Potassium 3.5 mmol/L (3.5-5.1); Protein, Total 7.5 g/dL (6.0-8.3); Sodium 135 mmol/L (136-145)
[2022-07-03] MEDS ORDERED: Aspirin 325 MG TAB ONE (17:26)
[2022-07-03 17:31] LABS: Bacteria/HPF None Seen HPF (None Seen); Bilirubin Negative (Negative); Blood, Urine Negative (Negative); Clarity Clear (Clear); Glucose, Urine (Dipstick) Normal (Negative); Ketone, Urine Negative (Negative); Leukocyte Negative Leu/uL (Negative); Nitrite Negative (Negative); Protein, Urine (Dipstick) Negative (Neg-Trace); RBC/HPF 0-3 HPF (0-3); Specific Gravity, Urine 1.025 (1.002-1.036); Squamous Epithelial 0-3 HPF (0-3); Urobilinogen Normal mg/dL (Less than 2); WBC/HPF 0-3 HPF (0-3)
[2022-07-03 17:44] LABS: SARS-CoV-2 NAA Rapid Test Not Detected (NotDetected)
[2022-07-03 18:03] LABS: BHCG - Serum Negative (NEGATIVE); Pregs Control Background? CLEAR/WHITE (CLR/WHITE); Pregs Control Bar Appear? YES (CONTROL BAR)
[2022-07-03] MEDS ORDERED: Ondansetron ODT 4 MG TAB PO PRN (18:22)
[2022-07-03] MEDS ORDERED: Ondansetron PF 4 MG/2 ML Vial IVP PRN (18:22)
[2022-07-03 19:49] LABS: Troponin I Less than 0.010 ng/mL (< 0.028)
[2022-07-03] MEDS: Acetaminophen 325 MG TAB PO PRN (20:50)
[2022-07-03] MEDS: Famotidine 20 MG TAB PO SCH (20:53)
[2022-07-03] MEDS ORDERED: Atorvastatin Calcium 40 MG TAB PO SCH (21:00)
[2022-07-03] MEDS ORDERED: hydrALAZINE 20 MG/ML VIAL SLOW IVP PRN (21:06)
[2022-07-03 23:33] LABS: Troponin I Less than 0.010 ng/mL (< 0.028)
[2022-07-03 23:36] VITALS: BMI 26.4
[2022-07-04 05:15] LABS: #Lymphocytes 1.1 thou/uL (1.20-3.40); #Monocytes 0.9 thou/uL (0.11-0.59); #Neutrophils 9.1 thou/uL (1.40-6.50); %Basophils 0.4 % (0.0-1.0); %Eosinophils 0.1 % (0.0-10.0); %Lymphocytes 10.2 % (21.0-51.0); %Monocytes 7.8 % (0.0-10.0); %Neutrophils 81.5 % (42.0-75.0); Hemoglobin 12.8 g/dL (12.0-16.0); Mean Corpuscular HGB CONC 32.1 g/dL (32.0-36.0); Mean Corpuscular Hemoglobin 29.9 pg (27.0-31.0); Mean Corpuscular Volume 93.2 fL (78.0-98.0); Mean Platelet Volume 9.5 fL (7.4-10.4); Platelet Count 248 thou/uL (130-400); RBC Distribution Width 11.5 % (11.5-14.5); Red Blood Cell (RBC) Count 4.29 mill/uL (4.20-5.40); White Blood Cell (WBC) Count 11.1 thou/uL (4.8-10.8)
[2022-07-04 05:58] LABS: ALT (SGPT) 25 U/L (8-55); AST (SGOT) 25 U/L (5-34); Albumin 4.2 g/dL (3.5-5.0); Alkaline Phosphatase 88 U/L (40-110); Anion Gap 12 mmol/L (10-20); BUN (Urea Nitrogen) 17 mg/dL (9.8-20.1); Bilirubin, Total 0.6 mg/dL (0.2-1.2); Calc. Creatinine Clearance 73 mL/min (70-130); Calcium 10.3 mg/dL (7.8-10.44); Carbon Dioxide 25 mmol/L (22-29); Cardiac Risk 1.8 (Less than 4.5); Chloride 102 mmol/L (98-107); Cholesterol 183 mg/dl (< 200 Desired); Estimated GFR 77; Glucose 123 mg/dL (70-105); HDL Cholesterol 99 mg/dL (>60 Neg Risk); Hemoglobin A1c 5.2 % (4.0-6.0); Iron 65 ug/dL (50-170); Iron Binding Capacity, Total 369 mcg/dL (265-497); LDL Cholesterol, Calculated 75 mg/dL; Potassium 3.8 mmol/L (3.5-5.1); Protein, Total 8.2 g/dL (6.0-8.3); Sodium 135 mmol/L (136-145); Triglycerides 44 mg/dL (Less than 150)
[2022-07-04 06:21] LABS: Ferritin 39.11 ng/mL (10-291); Thyroid Stimulating Hormone 0.2273 uIU/mL (0.35-4.94)
[2022-07-04] MEDS ORDERED: ALPRAZolam 0.5 MG TAB PO PRN (08:07)
[2022-07-04] MEDS: Famotidine 20 MG TAB PO SCH (08:07)
[2022-07-04] MEDS ORDERED: Aspirin 81 mg Enteric Coated Tablet PO SCH (09:00)
[2022-07-04] MEDS ORDERED: Methocarbamol 500 MG TAB PO PRN (12:19)
[2022-07-04] MEDS: Acetaminophen 325 MG TAB PO PRN (12:40)
[2022-07-04 16:31] VITALS: BP 132/77; TEMP 97.6
== END 2022-07-04 19:31 | disposition home or self-care (01) ==
LOC: ERS 15:25 → NEURO 20:06
PROVIDERS: ADMIT Internal Medicine; ATTEND Internal Medicine
DX: G45.9 Transient cerebral ischemic attack, unspecified (principal); I16.1 Hypertensive emergency; I10 Essential (primary) hypertension; E78.5 Hyperlipidemia, unspecified; D64.9 Anemia, unspecified; Z86.73 Personal history of transient ischemic attack (TIA), and cerebral infarction without residual deficits; Z79.899 Other long term (current) drug therapy; Z88.8 Allergy status to other drugs, medicaments and biological substances; Z91.041 Radiographic dye allergy status; Z20.822 Contact with and (suspected) exposure to COVID-19
CPT/HCPCS: 36415; 70450; 70496; 70498; 70551; 71045; 80053; 80061; 81001; 82550; 82607; 82728; 83036; 83540; 83550; 83880; 84439; 84443; 84484; 84703; 85025; 85610; 85730; 93005; 93010; 93306; 95712; 95819; 95957; 96374; 96375; G0378; J2920; Q9967; S0028; U0002

== ENCOUNTER 2022-10-23 18:55 | Emergency (ER) | payer BC, OTHER ==
[2022-10-23] MEDS ORDERED: Ibuprofen 200 MG TAB ONE (19:30)
== END 2022-10-23 20:15 | disposition home or self-care (01) ==
LOC: ERS 18:55
DX: S46.012A Strain of muscle(s) and tendon(s) of the rotator cuff of left shoulder, initial encounter (principal); I10 Essential (primary) hypertension; W20.8XXA Other cause of strike by thrown, projected or falling object, initial encounter
CPT/HCPCS: 99282

== ENCOUNTER 2022-12-14 10:05 | Day surgery (SDC) | payer OTHER ==
[2022-12-12 12:40] VITALS: BMI 25.6
[2022-12-14] MEDS ORDERED: FENTANYL 50 MCG/ML 1 ML VIAL ONE (12:11)
[2022-12-14] MEDS ORDERED: PROPOFOL 200 MG/20 ML VIAL ONE (12:30)
[2022-12-14] MEDS ORDERED: Lidocaine 1% PF 5 ML VIAL ONE ×2 (12:30→13:47)
[2022-12-14] MEDS ORDERED: Dexamethasone 20 MG/5 ML VIAL ONE (12:30)
[2022-12-14] MEDS ORDERED: Ondansetron PF 4 MG/2 ML Vial ONE (12:30)
[2022-12-14] MEDS ORDERED: Meperidine HCl/PF 25 MG/ML VIAL ONE (14:01)
== END 2022-12-14 15:27 | disposition home or self-care (01) ==
LOC: MRI 10:05
PROVIDERS: ATTEND Family Medicine Sports Medicine
DX: M47.812 Spondylosis without myelopathy or radiculopathy, cervical region (principal); M48.02 Spinal stenosis, cervical region; M50.321 Other cervical disc degeneration at C4-C5 level; M47.813 Spondylosis without myelopathy or radiculopathy, cervicothoracic region; M50.221 Other cervical disc displacement at C4-C5 level; M67.814 Other specified disorders of tendon, left shoulder; S46.012A Strain of muscle(s) and tendon(s) of the rotator cuff of left shoulder, initial encounter; I10 Essential (primary) hypertension; Z88.8 Allergy status to other drugs, medicaments and biological substances; Z91.041 Radiographic dye allergy status; Z79.899 Other long term (current) drug therapy; Z86.73 Personal history of transient ischemic attack (TIA), and cerebral infarction without residual deficits; X50.9XXA Other and unspecified overexertion or strenuous movements or postures, initial encounter; Y93.89 Activity, other specified
CPT/HCPCS: 72141; J2175; J3010

== ENCOUNTER 2023-07-19 17:42 | Emergency (ER) | payer OTHER | END 2023-07-19 19:41 | disposition home or self-care (01) | LOC: ERS 17:42 | DX: S69.91XA Unspecified injury of right wrist, hand and finger(s), initial encounter (principal); I10 Essential (primary) hypertension; Z79.899 Other long term (current) drug therapy; W22.8XXA Striking against or struck by other objects, initial encounter; Y92.89 Other specified places as the place of occurrence of the external cause; Y99.0 Civilian activity done for income or pay ==

== ENCOUNTER 2023-08-21 08:56 | Emergency (ER) | payer BC, OTHER ==
[2023-08-21] MEDS ORDERED: Ketorolac Tromethamine 30 MG/ML VIAL ONE (09:16)
[2023-08-21 09:23] LABS: #Basophils 0.1 thou/uL (0.0-0.2); #Eosinphils 0.1 thou/uL (0.0-0.7); #Monocytes 0.7 thou/uL (0.11-0.59); %Basophils 1.3 % (0.0-1.0); %Eosinophils 0.9 % (0.0-10.0); %Lymphocytes 24.1 % (21.0-51.0); %Monocytes 11.2 % (0.0-10.0); %Neutrophils 62.3 % (42.0-75.0); Hematocrit 37.6 % (36.0-47.0); Hemoglobin 12.7 g/dL (12.0-16.0); Mean Corpuscular HGB CONC 33.8 g/dL (32.0-36.0); Mean Corpuscular Hemoglobin 30.8 pg (27.0-31.0); Mean Platelet Volume 11.2 fL (7.4-10.4); Platelet Count 234 10x3/uL (130-400); Red Blood Cell (RBC) Count 4.13 mill/uL (4.20-5.40); White Blood Cell (WBC) Count 6.4 10x3/uL (4.8-10.8)
[2023-08-21] MEDS ORDERED: Midazolam HCl 2 mg/2 ml Vial ONE (09:38)
[2023-08-21 09:49] LABS: ALT (SGPT) 20 U/L (8-55); AST (SGOT) 22 U/L (5-34); Albumin 4.2 g/dL (3.5-5.0); Alkaline Phosphatase 79 U/L (40-110); Anion Gap 14 mmol/L (10-20); BUN (Urea Nitrogen) 12 mg/dL (9.8-20.1); Bilirubin, Total 0.8 mg/dL (0.2-1.2); Calc. Creatinine Clearance 0 mL/min (70-130); Calcium 9.8 mg/dL (7.8-10.44); Carbon Dioxide 27 mmol/L (22-29); Chloride 102 mmol/L (98-107); Estimated GFR 86; Glucose 105 mg/dL (70-105); Potassium 3.9 mmol/L (3.5-5.1); Protein, Total 8.2 g/dL (6.0-8.3); Sodium 139 mmol/L (136-145)
[2023-08-21 10:13] LABS: Troponin I Less than 0.010 ng/mL (< 0.028)
[2023-08-21] MEDS ORDERED: Acetaminophen 500 MG TAB ONE (10:54)
== END 2023-08-21 12:20 | disposition home or self-care (01) ==
LOC: ERS 08:56
DX: M25.512 Pain in left shoulder (principal); M54.2 Cervicalgia; I10 Essential (primary) hypertension; Z79.899 Other long term (current) drug therapy
CPT/HCPCS: 36415; 80053; 84484; 85025; 93005; 96374; 96375; J1885; J2250